=== PATIENT | male | born 1950 | race Caucasian/White ===

== ENCOUNTER 2017-04-12 06:21 | Emergency (ER) | payer OTHER ==
[2017-04-12 06:28] VITALS: TEMP 98.2
--- NOTE | 2017-04-12 06:46 | CPEKG ---
Heart Rate: 59 RR Interval: 1017 P-R Interval: 168 QRSD Interval: 100 QT Interval: 424 QTC Interval: 420 P [place]: 2 QRS [place]: -14 T Wave [place]: 57 EKG Severity - NORMAL ECG - EKG Impression: SINUS RHYTHM Electronically Signed By: Cee Hoffman 13-Apr-2017 06:36:22
--- NOTE | 2017-04-12 06:56 | EDPHY ---
H & P Stated Complaint: AWOKE 0445 LEFT ARM STIFF,BETTER- STILL FEELS DIFFERENT, NOSE BLEED THIS AM Source: Patient Exam Limitations: No limitations - Personal History Current Tetanus/Diphtheria Vaccine: Unsure - Medical/Surgical History Hx Asthma: No Hx Chronic Respiratory Disease: No Hx Diabetes: No Hx Cardiac Disease: No Hx Renal Disease: No Hx Cirrhosis: No Hx Alcoholism: No Hx HIV/AIDS: No Hx Splenectomy or Spleen Trauma: No Other PMH: KIDNEY STONES, HTN ,HYPERCHOLEST, LEFT HIP, RIGHT ANKLE,NASAL PROB - Social History Smoking Status: Never smoked Time Seen by Provider: 04/12/17 06:33 HPI/ROS: HPI The patient presents with left arm stiffness which he describes as a funny sensation throughout his entire arm which she awoke with at 4:45 a.m. this morning. He says he tried to make a fist with his hand it was difficult. He does not have any numbness or tingling of his arm and does not believe that he slept on his left side. His symptoms are gradually improving and now he feels only a mild stiffness. He does not have any chest pain, shortness of breath, nausea, vomiting, dizziness, diaphoresis. He has no changes in his speech, difficulty swallowing, vision changes, weakness of his arms or legs. He has no prior history of similar. About 1 hour after his symptoms began he had a episode of epistaxis which is now resolved. He is concerned because his cousin had something similar to this several years ago and shortly thereafter. REVIEW OF SYSTEMS Constitutional: No fever, no chills. Eyes: No discharge. ENT: No sore throat. Cardiovascular: No chest pain, no palpitations. Respiratory: No cough, no shortness of breath. Gastrointestinal: No abdominal pain, no vomiting. Genitourinary: No hematuria. Musculoskeletal: No back pain. Skin: No rashes. Neurological: No headache. PMHx: Hypertension, hypercholesterolemia Soc Hx: Housed PHYSICAL General Appearance: Alert, no distress Eyes: Pupils equal and round no pallor or injection ENT, Mouth: Mucous membranes moist Respiratory: There are no retractions, lungs are clear to auscultation Cardiovascular: Regular rate and rhythm Gastrointestinal: Abdomen is soft and non-tender, no masses, bowel sounds normal Neurological: A&O x3, cranial nerves 2-12 intact, 5/5 strength in his upper and lower extremities which is symmetric, no pronator drift, sensation is intact to light touch, normal finger to nose and heel to khoury testing, speech is fluid Skin: Warm and dry, no rashes Musculoskeletal: Neck is supple non tender Extremities: symmetrical, full range of motion Psychiatric: Patient is oriented X 3, there is no agitation (Cee Hoffman) Constitutional: Initial Vital Signs Temperature (C) 36.8 C 04/12/17 06:23 Heart Rate 61 04/12/17 06:23 Respiratory Rate 18 04/12/17 06:23 Blood Pressure 166/99 H 04/12/17 06:23 O2 Sat (%) 98 04/12/17 06:23 O2 Delivery Mode Room Air Allergies/Adverse Reactions: No Known Allergies Allergy (Verified 04/12/17 06:23) Home Medications: Medication Instructions Recorded Aspirin [Aspirin 81mg] 81 mg PO DAILY 08/20/11 PARoxetine HCL [Paxil] 10 mg PO DAILY 08/20/11 SIMVASTATIN [Zocor] 40 mg PO DAILY 08/20/11 Multivitamins [Tab-A-Joyce] 1 each PO DAILY 04/12/13 Nila Allergy 04/12/17 Flonase Nasal [place] 04/12/17 Losartan Potassium 04/12/17 Prevacid 04/12/17 Medical Decision Making - Diagnostics Imaging: Discussed imaging studies w/ score caller Radiologist, I viewed and interpreted images myself - Diagnostics EKG Interpretation: EKG: Complete interpretation has been separately recorded in the [facility] archive. Summary impression: Normal sinus rhythm no ST segment changes (Cee Hoffman) Imaging Results: Imaging Impressions Chest X-Ray 04/12/17 06:45 Impression: No acute abnormality. Brain MRI 04/12/17 07:20 Impression: 1. Old tiny lacunar infarcts involving the head of the right caudate nucleus, the right and left thalami, and the right parietal lobe. There is also extensive periventricular chronic microvascular ischemic gliosis. There is no evidence of an acute or subacute infarct. 2. MR features consistent with cerebral amyloid angiopathy (CAA). Neurology consultation is suggested. 3. Prominent perivascular spaces, consistent with "etat crible." Findings were discussed with Gamaliel Stone MD at 8:56 AM, on 04/12/2017. Chest x-ray two view demonstrates no cardiomegaly, no infiltrate, interpreted by me, radiology interpretation is pending. CT scan head without contrast shows abnormality in the right parietal region, discussed with Dr. Delacruz of Radiology. (Cee Hoffman) ED Course/Re-evaluation: 06 care assumed by me from Dr. Valdes. This is a 66-year-old male presenting with left arm stiffness upon waking this morning. Symptoms have improved. He is pending ECG, troponin and CT scan of his chest and chest x-ray. 719 CT brain shows abnormality in R parietal region. Report taken by Dr Hoffman. MRI brain with and without ordered. 919 MRI results discussed with Dr. Hunter. Will consult neurology. No evidence of acute stroke at this time. [address] Gamaliel Robb, neurology. He is recommending discharging the patient for outpatient follow-up. He is not recommending starting any new therapeutics at this time. He will see the patient in his office in the next 1-2 days. (Gamaliel Stone) Differential Diagnosis: This is a 66-year-old male with history of hypertension and hyperlipidemia who presents from home with L arm stiffness. On exam, he does not have any neurologic deficits and his NIH stroke score is 0. He does not have any chest pain. Differential diagnosis includes TIA, ACS, arthritis, paresthesias. Plan for basic laboratory testing, EKG, chest x-ray, CT scan of head. If his testing is normal, I feel he is suitable for discharge with monitoring of his symptoms at home. He could start an aspirin to be on the safe side. I will refer him back to his primary care doctor presuming all testing is negative here. At 7:00 a.m., the case is signed out to the oncoming provider Dr. Stone. He will follow up on the patient's testing. At approximately 7:15 a.m., I received a call from Dr. Delacruz who reported that the patient's CT scan has an abnormality in the right parietal region, given that his symptoms are left-sided, we agree that MRI with and without contrast is warranted to evaluate for possible ischemia verses mass. I have discussed this with the patient. The remainder of his testing is starting to return and is unremarkable so far. (Cee Hoffman) - Data Points Laboratory Results: Laboratory Results 04/12/17 06:50 04/12/17 06:50 04/12/17 04/12/17 06:50 06:50 WBC 5.20 10^3/uL 10^3/uL (3.80-9.50) RBC 5.30 10^6/uL 10^6/uL (4.40-6.38) Hgb 15.6 g/dL g/dL (13.7-17.5) Hct 44.6 % % (40.0-51.0) MCV 84.2 fL fL (81.5-99.8) MCH 29.4 pg pg (27.9-34.1) MCHC 35.0 g/dL g/dL (32.4-36.7) RDW 14.1 % % (11.5-15.2) Plt Count 159 10^3/uL 10^3/uL (150-400) MPV 10.3 fL fL (8.7-11.7) Neut % (Auto) 67.5 % % (39.3-74.2) Lymph % (Auto) 17.9 % % (15.0-45.0) [place] % (Auto) 9.6 % % (4.5-13.0) Eos % (Auto) 3.5 % % (0.6-7.6) Baso % (Auto) 1.3 % % (0.3-1.7) Nucleat RBC Rel Count 0.0 % % (0.0-0.2) Absolute Neuts (auto) 3.51 10^3/uL 10^3/uL (1.70-6.50) Absolute Lymphs (auto) 0.93 10^3/uL L 10^3/uL (1.00-3.00) Absolute Monos (auto) 0.50 10^3/uL 10^3/uL (0.30-0.80) Absolute Eos (auto) 0.18 10^3/uL 10^3/uL (0.03-0.40) Absolute Basos (auto) 0.07 10^3/uL 10^3/uL (0.02-0.10) Absolute Nucleated RBC 0.00 10^3/uL 10^3/uL (0-0.01) Immature Gran % 0.2 % % (0.0-1.1) Immature Gran # 0.01 10^3/uL 10^3/uL (0.00-0.10) Sodium 140 mEq/L mEq/L (134-144) Potassium 4.0 mEq/L mEq/L (3.5-5.2) Chloride 109 mEq/L mEq/L (97-110) Carbon Dioxide 22 mEq/l mEq/l (22-31) Anion Gap 9 mEq/L mEq/L (8-16) BUN 18 mg/dL mg/dL (7-23) Creatinine 0.9 mg/dL mg/dL (0.7-1.3) Estimated GFR > 60 Glucose 91 mg/dL mg/dL (70-100) Calcium 9.2 mg/dL mg/dL (8.5-10.4) Troponin I < 0.012 ng/mL ng/mL (0-0.034) Departure - Departure Disposition: Home, Routine, Self-Care Clinical Impression: Old lacunar stroke without late effect, Abnormal MRI Condition: Good Instructions: Paresthesia (ED) Additional Instructions: Please follow-up with your primary care doctor in 1-2 days. Follow up with Neurology, Dr. Robb, in 1-2 days. Call tomorrow morning for next available appointment. Return to the emergency department for new numbness or weakness, fainting, chest pain, shortness of breath, or any other concerns. Referrals: KEVIN RIOS [Primary Care Provider] - As per Instructions Gamaliel Robb DO [Medical Doctor] - As per Instructions
[2017-04-12 06:57] LABS: % IMMATURE GRANULYOCYTES 0.2 % (0.0-1.1); ABSOLUTE IMMATURE GRANULOCYTES 0.01 10^3/uL (0.00-0.10); ADD DIFF? NO; ADD MORPH? NO; ADD SCAN? NO; ATYPICAL LYMPHOCYTE FLAG 10 (0-99); FRAGMENT RBC FLAG 0 (0-99); HEMATOCRIT 44.6 % (40.0-51.0); HEMOGLOBIN 15.6 g/dL (13.7-17.5); LEFT SHIFT FLG 0 (0-99); LIPEMIA HEMOLYSIS FLAG 90 (0-99); MEAN CELL HEMOGLOBIN 29.4 pg (27.9-34.1); MEAN CELL VOLUME 84.2 fL (81.5-99.8); MEAN PLATELET VOLUME 10.3 fL (8.7-11.7); PLATELET CLUMPS FLAG 10 (0-99); PLATELET COUNT 159 10^3/uL (150-400); RED CELL DISTRIBUTION WIDTH 14.1 % (11.5-15.2)
[2017-04-12] MEDS ORDERED: METRONIDAZOLE 500 MG/NACL/100 ML BAG IV ONE (06:57)
[2017-04-12] MEDS ORDERED: CIPROFLOXACIN 400 MG/DEXTROSE/200 ML BAG IV ONE (06:58)
[2017-04-12] MEDS ORDERED: METOPROLOL TARTRATE 5 MG/5 ML INJ ONE (06:59)
[2017-04-12 07:12] LABS: ANION GAP 9 mEq/L (8-16); CALCIUM 9.2 mg/dL (8.5-10.4); CARBON DIOXIDE 22 mEq/l (22-31); CHLORIDE 109 mEq/L (97-110); CREATININE 0.9 mg/dL (0.7-1.3); GLOMERULAR FILTRATION RATE > 60; GLUCOSE 91 mg/dL (70-100); SODIUM 140 mEq/L (134-144)
[2017-04-12 07:24] LABS: TROPONIN I < 0.012 ng/mL (0-0.034)
[2017-04-12] MEDS ORDERED: GADOBUTROL 10 ML VIAL IVP ONE (08:00)
[2017-04-12 09:51] VITALS: BP 170/105; PULSE 60; RESP 16; O2SAT 97
== END 2017-04-12 09:50 | disposition home or self-care (01) ==
DX: R94.02 Abnormal brain scan (principal); I10 Essential (primary) hypertension; Z79.82 Long term (current) use of aspirin; Z86.73 Personal history of transient ischemic attack (TIA), and cerebral infarction without residual deficits
CPT/HCPCS: A9585; J0744

== ENCOUNTER 2017-11-18 05:03 | Observation (INO) | payer OTHER ==
--- NOTE | 2017-11-18 05:20 | EDPHY ---
H & P Stated Complaint: VOMITING SINCE [place] HPI/ROS: HPI CHIEF COMPLAINT: Nausea vomiting and abdominal pain HISTORY OF PRESENT ILLNESS: Patient very pleasant 67-year-old male, history of hypertension hyperlipidemia, presents emergency room with nausea vomiting and diffuse crampy abdominal pain that started around midnight. He states he has vomited every hour. Cannot tolerate p.o. or keep anything down. He decided come to the emergency room for evaluation. He denies any chest pain or shortness of breath. He describes abdominal pain is rather diffuse and crampy. He denies diarrhea or fever. Describes as vomit is mainly watery. Pain is abdomen is diffuse crampy 3/10. Past Medical History: Hypertension, hyperlipidemia, CVA Past Surgical History: Nasal surgery Social History: Denies daily use drugs alcohol tobacco products. Family History: Noncontributory ROS REVIEW OF SYSTEMS: A comprehensive 10 point review of systems is otherwise negative aside from elements mentioned in the history of present illness. Exam Constitutional appears well nontoxic, triage nursing summary reviewed, vital signs reviewed, awake/alert. Eyes normal conjunctivae and sclera, EOMI, PERRLA. HENT normal inspection, atraumatic, moist mucus membranes, no epistaxis, neck supple/ no meningismus, no raccoon eyes. Respiratory clear to auscultation bilaterally, normal breath sounds, no respiratory distress, no wheezing. Cardiovascular rate normal, regular rhythm, no murmur, no edema, distal pulses normal. Gastrointestinal soft, non-tender, no rebound, no guarding, normal bowel sounds, no distension, no pulsatile mass. Genitourinary no CVA tenderness. Musculoskeletal no midline vertebral tenderness, full range of motion, no calf swelling, no tenderness of extremities, no meningismus, good pulses, neurovascularly intact. Skin pink, warm, & dry, no rash, skin atraumatic. Neurologic awake, alert and oriented x 3, AAOx3, moves all 4 extremities equally, motor intact, sensory intact, CN II-XII intact, normal cerebellar, normal vision, normal speech. Psychiatric normal mood/affect. Heme/Lymph/Immune no lymphadenopathy. Differential diagnosis includes but is not limited to and in no particular order : Bowel obstruction, appendicitis, gallbladder disease, diverticulitis, colitis , enteritis, perforated viscus, gastritis, GERD, esophagitis, urinary tract infection, pyelonephritis, kidney stones Medical Decision Making: Plan for this patient IV establishment with IV fluid bolus, Zofran for nausea, check basic blood work and electrolytes, check UA, IV hydration 2 L normal saline and re-evaluate. Re-evaluation: 0644: CT scan abdomen pelvis with IV contrast called to me. Significant constipation. No free air no free fluid. No acute inflammatory process visualized. Called to me by Dr. Long. 0714: I did re-evaluate this patient he is nauseous at this time. He is retching. I will order him 6.25 mg IV Phenergan. And re-evaluate. 0745: Patient received 6.25 mg IV Phenergan is feeling slightly better. Still feels very nauseous. CT scan shows constipation 0749AM: I did go re-evaluate the patient. He has no chest pain or shortness of breath however still feels very nauseous. He prefers stay in the hospital today due to ongoing nausea and vomiting. He did have another episode of vomiting. Feeling slightly better after Phenergan. Plan will be to admit to the hospitalist service for IV hydration acute nausea control with antiemetics. He has received 2 L here in emergency room. Will give him a 3rd one. Admit to the medicine service and if he is feeling better later today with no further nausea vomiting go home. EKG interpretation by me on record in [facility] system. Impression time of EKG 7:54 a.m. sinus rhythm rate of [address] elevation no ST depression subtle T- wave inversion in lead 1 aVL otherwise unremarkable. Spoke with the hospitalist Dr. Adame. Will admit for nausea vomiting dehydration. Patient agrees for this plan. Dr. Adame will admit and see the patient Source: Patient - Personal History Current Tetanus Diphtheria and Acellular Pertussis (TDAP): Yes - Medical/Surgical History Hx Asthma: No Hx Chronic Respiratory Disease: No Hx Diabetes: No Hx Cardiac Disease: No Hx Renal Disease: No Hx Cirrhosis: No Hx Alcoholism: No Hx HIV/AIDS: No Hx Splenectomy or Spleen Trauma: No Other PMH: KIDNEY STONES, HTN ,HYPERCHOLEST, LEFT HIP, RIGHT ANKLE,NASAL PROB - Social History Smoking Status: Never smoked Constitutional: Initial Vital Signs Temperature (C) 36.4 C 11/18/17 05:08 Heart Rate 85 11/18/17 05:08 Respiratory Rate 16 11/18/17 05:08 Blood Pressure 145/92 H 11/18/17 05:08 O2 Sat (%) 95 11/18/17 05:08 O2 Delivery Mode Room Air Allergies/Adverse Reactions: No Known Allergies Allergy (Verified 04/12/17 06:23) Home Medications: Medication Instructions Recorded Fexofenadine HCl [Nila Allergy] 60 mg PO DAILY PRN 04/12/17 Fluticasone Nasal [Flonase Nasal 1 sprays NASAL DAILY PRN 04/12/17 [place] (RX)] Lansoprazole [Prevacid] 15 mg PO DAILY 04/12/17 Losartan Potassium [Cozaar 50 mg 100 mg PO DAILY 04/12/17 (*)] Aspirin [Aspirin 81mg (*)] 81 mg PO DAILY 11/18/17 Carboxymethylcellulose 1% [Refresh 1 drop EACHEYE Q6-8PRN PRN 11/18/17 Celluvisc (*)] Hydrochlorothiazide [HCTZ (*)] 25 mg PO DAILY 11/18/17 Multivitamins [Multivitamin (*)] 1 each PO DAILY 11/18/17 PARoxetine HCL [Paxil 10mg (*)] 10 mg PO DAILY 11/18/17 Simvastatin [Zocor] 40 mg PO HS 11/18/17 Sodium Cl Nasal [[place] (*)] 1 spray NS DAILY PRN 11/18/17 Medical Decision Making - Data Points Laboratory Results: Laboratory Results 11/18/17 05:31 11/18/17 05:31 Medications Given: Sodium Chloride (Ns) 1,000 mls @ 100 mls/hr IV CONT MARYCHUY Stop: 05/17/18 09:29 Last Admin: 11/18/17 10:11 Dose: 1,000 mls Ondansetron HCl (Zofran) 4 mg IVP Q4HRS PRN PRN Reason: Nausea/Vomiting, Can't Take PO Stop: 05/17/18 10:00 Last Admin: 11/18/17 10:11 Dose: 4 mg Discontinued Medications Sodium Chloride (Ns) 1,000 mls @ 0 mls/hr IV EDNOW ONE; Wide Open PRN Reason: Protocol Stop: 11/18/17 05:22 Last Admin: 11/18/17 05:33 Dose: 1,000 mls Sodium Chloride (Ns) 1,000 mls @ 0 mls/hr IV ONCE ONE PRN Reason: Wide Open Stop: 11/18/17 05:31 Last Admin: 11/18/17 06:27 Dose: 1,000 mls Ondansetron HCl (Zofran) 4 mg IVP EDNOW ONE Stop: 11/18/17 05:22 Last Admin: 11/18/17 05:33 Dose: 4 mg Polyethylene Glycol/Electrolytes (Gavilyte - G) 4,000 ml PO ONCE ONE Stop: 11/18/17 09:29 Last Admin: 11/18/17 10:11 Dose: 4,000 ml Promethazine HCl (Phenergan) 6.25 mg IVP ONCE ONE Stop: 11/18/17 07:15 Last Admin: 11/18/17 07:20 Dose: 6.25 mg Departure - Departure Disposition: [facility] Acute Clinical Impression: Vomiting Qualifiers: Vomiting type: unspecified Vomiting Intractability: intractable Nausea presence : with nausea Qualified Code(s): R11.2 - Nausea with vomiting, unspecified Condition: Good
[2017-11-18] MEDS ORDERED: NS 1,000 ML IV ONE ×2 (05:21→05:30)
[2017-11-18] MEDS ORDERED: ONDANSETRON 4 MG/2 ML VIAL IVP ONE (05:21)
[2017-11-18] MEDS ORDERED: IOPAMIDOL (ISOVUE-300) 100 ML BTL ONE (05:34)
[2017-11-18 05:47] LABS: PLATELET COUNT 172 10^3/uL (150-400)
[2017-11-18 05:55] LABS: INR 0.96 (0.83-1.16)
[2017-11-18] MEDS ORDERED: PROMETHAZINE HCL 25 MG/ML INJ IVP ONE (07:14)
--- NOTE | 2017-11-18 07:56 | CPEKG ---
Heart Rate: 91 RR Interval: 659 P-R Interval: 164 QRSD Interval: 98 QT Interval: 372 QTC Interval: 458 P [place]: 11 QRS [place]: -6 T Wave [place]: 86 EKG Severity - ABNORMAL ECG - EKG Impression: SINUS RHYTHM EKG Impression: PROBABLE LEFT ATRIAL ABNORMALITY EKG Impression: NONSPECIFIC T ABNORMALITIES, LATERAL LEADS Electronically Signed By: Stacy Lyles 18-Nov-2017 15:09:59
[2017-11-18] MEDS ORDERED: PROMETHAZINE HCL 25 MG/ML INJ IVP PRN (09:25)
[2017-11-18] MEDS ORDERED: ONDANSETRON DISINTEGRATING 4 MG TAB PO PRN (09:25)
[2017-11-18] MEDS ORDERED: ACETAMINOPHEN 325 MG TAB PO PRN (09:25)
[2017-11-18] MEDS ORDERED: ONDANSETRON 4 MG/2 ML VIAL IVP PRN ×2 (09:25→10:01)
[2017-11-18] MEDS ORDERED: PEG 3350/NA SULF,BICARB,CL/KCL (GAVILYTE-G) 4000 ML BTL PO ONE (09:28)
--- NOTE | 2017-11-18 09:51 | GHP ---
[f rep st] HISTORY AND PHYSICAL DATE OF ADMISSION: 11/18/2017 HISTORY OF PRESENT ILLNESS: The patient is a 67-year-old gentleman with a history of hypertension, h yperlipidemia and subclinical stroke, presents with an episode of abdominal pain, vomiting and nausea . He was feeling well until the middle of the night when he developed some abdominal pain and nausea . He vomited on the hour. He is unable to tolerate orals. He did not have any fever or chills. Th ere has been a woman at work that has had a viral gastroenteritis. He has been having bowel movement s that have been small. He said he has had constipation over the last year that has been intermitten t. He does not take narcotics. He has had a colonoscopy in the past. REVIEW OF SYSTEMS: Complete 10-point review of systems conducted and negative except as noted in the HPI. PAST MEDICAL HISTORY: Hypertension, hyperlipidemia, subclinical CVA. 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 Lives in [place]. Rare alcohol. No tobacco. FAMILY HISTORY: Notable for CVA and cancer. ALLERGIES: No known drug allergies. MEDICATION: Preliminary medication list is Nila, aspirin Flonase, hydrochlorothiazide, losartan, multivitamin, paroxetine, Prevacid, simvastatin. PHYSICAL EXAMINATION: PRESENTING VITAL SIGNS: Temp 36.4, blood pressure 145/92, pulse 85, breathing 16 times a minute, 95% on room air. GENERAL: No acute distress. HEENT: Sclerae anicteric. Oroph arynx clear. Mucous membranes moist. NECK: Supple. No lymphadenopathy or JVD. LUNGS: Clear to a uscultation bilaterally. HEART: S1, S2. ABDOMEN: Soft, nontender, nondistended. LOWER EXTREMITIE S: No edema. Calves are nontender. SKIN: Without rash. NEUROLOGIC: Exam is nonfocal. LABORATORIES: White count 10.7, hematocrit 48.6, platelets 172,000. INR is 1. Sodium 147, potassiu m 3.4, chloride 103, bicarb 26, BUN 27, creatinine 1.1. Glucose 153, LFTs normal. Lipase normal. T roponin less than 0.012. UA is unremarkable. EKG interpreted by me shows sinus at 91 with normal axis and intervals. No ST or T-wave changes. Abdominal CT images reviewed interpreted by me, shows constipation without acute intraabdominal proce ss. I have discussed the case Dr. Christian Agudelo. ASSESSMENT/PLAN: A 67-year-old gentleman presents with nausea, vomiting and constipation. 1. Nausea and vomiting. The differential in this case includes viral gastroenteritis versus nausea from constipation. I favor the latter. Will provide him with IV antiemetics and GoLYTELY prep until he has a large bowel movement. Certainly if he develops fever, rigors or diarrhea in the interim, t hen it is more likely to be a viral gastroenteritis. 2. Question angina. The patient has nausea, vomiting and risk factors for coronary artery disease. He has a nonischemic EKG. Normal troponin. We will stop the workup there. 3. Hyponatremia, this is mild and likely secondary to poor p.o. intake. Will hydrate with normal sa line. 4. Hypertension. We will hold his medications. 5. Disposition: Observation status. /[id number]/MODL
[2017-11-18] MEDS: NS 1,000 ML IV SCH (10:11)
[2017-11-18] MEDS ORDERED: FLUTICASONE NASAL 120 SPRAYS/16 GM MDI NS PRN (10:15)
[2017-11-18] MEDS ORDERED: CARBOXYMETHYLCELLULOSE 1% 0.4 ML DROPERETTE EACHEYE PRN (10:15)
[2017-11-18] MEDS ORDERED: SODIUM CL NASAL 45 ML BTL NS PRN (10:15)
[2017-11-18 23:30] VITALS: O2SAT 92
[2017-11-19] MEDS: NS 1,000 ML IV SCH (05:41)
[2017-11-19 08:52] VITALS: BP 135/86; PULSE 94; RESP 17; TEMP 98.1
[2017-11-19] MEDS ORDERED: PANTOPRAZOLE SODIUM 40 MG TAB PO SCH (09:00)
[2017-11-19] MEDS ORDERED: CETIRIZINE 10 MG TAB PO PRN (09:00)
[2017-11-19] MEDS ORDERED: ASPIRIN 81 MG CHEWABLE TAB PO SCH (09:00)
[2017-11-19] MEDS ORDERED: MULTIVITAMINS 1 EACH TAB PO SCH (09:00)
[2017-11-19] MEDS ORDERED: PARoxetine HCL 10 MG TAB PO SCH (09:00)
[2017-11-19] MEDS ORDERED: ENOXAPARIN 40 MG/0.4 ML SYR SC SCH (09:00)
--- NOTE | 2017-11-19 10:53 | HOSPPROG ---
Hospitalist Progress Note Assessment/Plan: 67 yo M w viral gastroenteritis ADAT home if tolerates Subjective: low grade temp this AM. had some bm's Objective: Vital Signs Temp Pulse Resp BP Pulse Ox 36.7 C 94 17 135/86 H 92 11/19/17 08:50 11/19/17 08:50 11/19/17 08:50 11/19/17 08:50 11/19/17 08:50 Laboratory Results 11/19/17 05:55 11/18/17 11/19/17 11/20/17 05:59 05:59 05:59 Intake Total 2505 Balance 2505 PT 13.0 SEC (12.0-15.0) 11/18/17 05:31 INR 0.96 (0.83-1.16) 11/18/17 05:31 - Physical Exam Constitutional: no apparent distress, appears nourished Eyes: PERRL, anicteric sclera Ears, Nose, Mouth, Throat: moist mucous membranes, hearing normal Cardiovascular: regular rate and rhythym, no murmur, rub, or gallop Respiratory: no respiratory distress, no rales or rhonchi Gastrointestinal: normoactive bowel sounds, soft, non-tender abdomen Genitourinary: No randle in urethra Skin: warm, normal color Musculoskeletal: full muscle strength, no muscle tenderness Neurologic: AAOx3 ICD10 Worksheet Patient Problems: Problems Problem Status Onset Vomiting Acute
--- NOTE | 2017-11-19 12:22 | GDS ---
[f rep st] DISCHARGE SUMMARY DISCHARGE DIAGNOSES: 1. Constipation. 2. Abdominal pain with nausea and vomiting. 3. Likely viral gastroenteritis. 4. Hypertension. Please see admission history and physical by Dr. Dionisio Lentz. The patient presented with abdomina l pain that began overnight in the beauty specialist hours of the . He had an abdominal CT showing c onstipation, otherwise unremarkable. His labs were notable for leukocytosis and normal LFTs and lipa se. The patient was noted to be constipated. He was given a GoLYTELY prep which he tolerated some, albeit some low-grade temperatures overnight and a fair amount of stools, as well as persistent nause a, but he was tolerating p.o. This is consistent with a diagnosis of viral gastroenteritis. /[id number]/MODL
--- NOTE | 2017-11-19 15:26 | ASDISCHSUM ---
Discharge Information Plan Status: Medically Cleared to Leave: Discharge Date:11/19/2017 01:40 PM CM D/C Disposition: ADT D/C Disposition:Home, Routine, Self-Care Projected Discharge Date:11/19/2017 01:40 PM Transportation at D/C: Discharge Delay Reason: Follow-Up Date:11/19/2017 01:40 PM Discharge Slot: Final Diagnosis: Placement Information Patient Contact Information Contact Name:MANPREET Relationship: Address: Home Phone: Work Phone: City: Alternate Phone: State/[place] Code: Email: Financial Information Financial Class:HMO and PPO Plans Primary Plan Desc:[facility] [employer] PLAN Primary Plan Number:[id number] Secondary Plan Desc: Secondary Plan Number: Assessment Information Intervention Information
[2017-11-19] MEDS ORDERED: ATORVASTATIN CALCIUM 20 MG TAB PO SCH (21:00)
== END 2017-11-19 13:40 | disposition home or self-care (01) ==
LOC: F1N 08:33
PROVIDERS: ADMIT Internal Medicine; ATTEND Internal Medicine
DX: K59.00 Constipation, unspecified (principal); R10.9 Unspecified abdominal pain; R11.2 Nausea with vomiting, unspecified; I10 Essential (primary) hypertension
CPT/HCPCS: 74177; 93005; 96361; 96374; 96375; 99285; G0378; J1650; J2405; J2550; Q9967